=== PATIENT | female | born 1965 ===

== ENCOUNTER 2018-01-28 10:05 | Outpatient (CLI) | payer OTHER ==
[~2018-01-28] VITALS: Ht 165.1 cm; Wt 148.3 kg
== END 2018-01-28 10:20 | disposition home or self-care (01) ==
LOC: OFIC 805 10:05
DX: K21.9 Gastro-esophageal reflux disease without esophagitis (principal); M26.69 Other specified disorders of temporomandibular joint; J30.89 Other allergic rhinitis; R49.0 Dysphonia; J34.89 Other specified disorders of nose and nasal sinuses

== ENCOUNTER → 2019-01-17 | Emergency (ER) | payer OTHER ==
[~2019-01-17] VITALS: Ht 165.1 cm; Wt 145.1 kg
[~2019-01-17] MED LIST: PROPRANOLOL HCL20 MG; ZESTRIL20 MG
== END | disposition left against medical advice (07) ==
LOC: ER 22:10
DX: Z53.20 Procedure and treatment not carried out because of patient's decision for unspecified reasons (principal)